=== PATIENT | female | born 1995 | race Caucasian/White ===

== ENCOUNTER 2016-12-06 13:14 | Emergency (ER) | payer MEDICAID ==
--- NOTE | 2016-12-06 14:12 | EDPHY ---
H & P Stated Complaint: x 24 hrs, has felt palpitations, pre-syncope. similar sx 1 mo ago. Time Seen by Provider: 12/06/16 13:36 HPI/ROS: Chief complaint palpitations HPI: 21-year-old female presenting with intermittent palpitations for the last month. Patient states that she is having symptoms usually in the morning and made at night. Feels her heart beating irregularly. No associated chest pain shortness of breath. Has the Implanon control placed urine half ago. Patient states she did have onset of a heavy. About a month ago which last about 2 days. She does not smoke. Does not drink alcohol. Does not use any recreational drugs. No family history of coronary disease or sudden cardiac . No recent travel. She is feeling very anxious and has been gurgling the symptoms and thought that maybe because of her recent heavy. She might have iron deficiency so she tight started taking iron supplements to treat this. Has had some increased stress anxiety. Has a history of anorexia but has not been anorexic for a couple of years. No recent weight loss or weight gain. No increased thirst or urination. No heat or cold intolerance. ROS: 10 point Review of Systems is negative except as noted in the HPI. Past medical history: Anorexia, in the past Past surgical history: None Medications: Implanon Allergies: No known drug allergies Social history: Does not smoke, drinks rare alcohol, no other recreational drug use. Physical exam: Gen: Awake, Alert, anxious appearing HEENT: Nose: no rhinorrhea Eyes: PERRLA, EOMI Mouth: Moist mucosa Neck: Supple, no JVD Chest: nontender, lungs clear to auscultation Heart: S1, S2 normal, no murmur Abd: Soft, non-tender, no guarding Back: no CVA tenderness, no midline tenderness Ext: no edema, non-tender Skin: no rash Neuro: CN II-XII intact, Sensation grossly intact, Strength 5/5 in bilateral upper and lower extremities - Personal History LMP (Females 10-55): 22-28 Days Ago Current Tetanus/Diphtheria Vaccine: Yes Current Tetanus Diphtheria and Acellular Pertussis (TDAP): Yes Tetanus Vaccine Date: 2012 - Medical/Surgical History Hx Asthma: No Hx Chronic Respiratory Disease: No Hx Diabetes: No Hx Cardiac Disease: No Hx Renal Disease: No Hx Cirrhosis: No Hx Alcoholism: No Hx HIV/AIDS: No Hx Splenectomy or Spleen Trauma: No Other PMH: tonsillectomy - Social History Smoking Status: Never smoked Constitutional: Initial Vital Signs Temperature (C) 36.7 C 12/06/16 13:17 Heart Rate 87 12/06/16 13:17 Respiratory Rate 18 12/06/16 13:17 Blood Pressure 115/71 12/06/16 13:17 O2 Sat (%) 100 12/06/16 13:17 O2 Delivery Mode Room Air Allergies/Adverse Reactions: No Known Allergies Allergy (Unverified 12/06/16 13:16) Home Medications: Medication Instructions Recorded B12/Levomefolate Calcium/B-6 12/06/16 Iron 12/06/16 Multivitamin 12/06/16 Nexplanon 12/06/16 Probiotic 12/06/16 Medical Decision Making - Diagnostics EKG Interpretation: EC, sinus rhythm with a rate of 69, normal axis, normal intervals, no acute ST or T-wave changes. Impression: Normal ECG. ED Course/Re-evaluation: 21-year-old presenting with palpitations. Normal ECG. Normal electrolytes. Normal H&H. She is not . She has a benign exam is otherwise well- appearing. I have not seen any ectopy on arteries and rhythm strip here. I have reassured her that there are no other concerning findings at this time. She has not have any weight loss or weight gain rather endocrine type symptomatology. Will discharge with follow up with [facility]. Return for any concerns. - Data Points Laboratory Results: Laboratory Results 12/06/16 14:22 12/06/16 14:22 12/06/16 12/06/16 12/06/16 14:22 14:22 14:22 WBC 4.72 10^3/uL 10^3/uL (3.80-9.50) RBC 3.97 10^6/uL L 10^6/uL (4.18-5.33) Hgb 13.7 g/dL g/dL (12.6-16.3) Hct 38.9 % % (38.0-47.0) MCV 98.0 fL fL (81.5-99.8) MCH 34.5 pg H pg (27.9-34.1) MCHC 35.2 g/dL g/dL (32.4-36.7) RDW 11.2 % L % (11.5-15.2) Plt Count 239 10^3/uL 10^3/uL (150-400) MPV 10.5 fL fL (8.7-11.7) Neut % (Auto) 43.2 % % (39.3-74.2) Lymph % (Auto) 44.7 % % (15.0-45.0) Hawkins % (Auto) 8.1 % % (4.5-13.0) Eos % (Auto) 2.1 % % (0.6-7.6) Baso % (Auto) 1.7 % % (0.3-1.7) Nucleat RBC Rel Count 0.0 % % (0.0-0.2) Absolute Neuts (auto) 2.04 10^3/uL 10^3/uL (1.70-6.50) Absolute Lymphs (auto) 2.11 10^3/uL 10^3/uL (1.00-3.00) Absolute Monos (auto) 0.38 10^3/uL 10^3/uL (0.30-0.80) Absolute Eos (auto) 0.10 10^3/uL 10^3/uL (0.03-0.40) Absolute Basos (auto) 0.08 10^3/uL 10^3/uL (0.02-0.10) Absolute Nucleated RBC 0.00 10^3/uL 10^3/uL (0-0.01) Immature Gran % 0.2 % % (0.0-1.1) Immature Gran # 0.01 10^3/uL 10^3/uL (0.00-0.10) Sodium 137 mEq/L mEq/L (134-144) Potassium 4.0 mEq/L mEq/L (3.5-5.2) Chloride 101 mEq/L mEq/L (97-110) Carbon Dioxide 25 mEq/l mEq/l (22-31) Anion Gap 11 mEq/L mEq/L (8-16) BUN 7 mg/dL mg/dL (7-23) Creatinine 0.7 mg/dL mg/dL (0.6-1.0) Estimated GFR > 60 Glucose 76 mg/dL mg/dL (70-100) Calcium 9.8 mg/dL mg/dL (8.5-10.4) Beta HCG, Qual NEGATIVE Departure - Departure Disposition: Home, Routine, Self-Care Clinical Impression: Palpitations Condition: Good Instructions: Palpitations (ED) Additional Instructions: Follow up with the [facility] in 4-5 days if you're still having palpitations. They will also assist you with evaluating your contraception. Return to the emergency depart for increasing chest pain, fainting, shortness of breath, or any other concerns. Referrals: NONE *PRIMARY CARE P,. [Primary Care Provider] - As per Instructions [facility] [Outside] - As per Instructions
[2016-12-06 14:30] LABS: % IMMATURE GRANULYOCYTES 0.2 % (0.0-1.1); ABSOLUTE IMMATURE GRANULOCYTES 0.01 10^3/uL (0.00-0.10); ADD DIFF? NO; ADD MORPH? NO; ADD SCAN? NO; ATYPICAL LYMPHOCYTE FLAG 10 (0-99); FRAGMENT RBC FLAG 20 (0-99); HEMATOCRIT 38.9 % (38.0-47.0); HEMOGLOBIN 13.7 g/dL (12.6-16.3); LEFT SHIFT FLG 0 (0-99); LIPEMIA HEMOLYSIS FLAG 90 (0-99); MEAN CELL HEMOGLOBIN 34.5 pg (27.9-34.1); MEAN CELL HEMOGLOBIN CONCENTR. 35.2 g/dL (32.4-36.7); MEAN PLATELET VOLUME 10.5 fL (8.7-11.7); PLATELET CLUMPS FLAG 20 (0-99); PLATELET COUNT 239 10^3/uL (150-400); RED BLOOD CELL COUNT 3.97 10^6/uL (4.18-5.33); RED CELL DISTRIBUTION WIDTH 11.2 % (11.5-15.2)
[2016-12-06 14:48] LABS: ANION GAP 11 mEq/L (8-16); CALCIUM 9.8 mg/dL (8.5-10.4); CARBON DIOXIDE 25 mEq/l (22-31); CHLORIDE 101 mEq/L (97-110); CREATININE 0.7 mg/dL (0.6-1.0); GLOMERULAR FILTRATION RATE > 60; GLUCOSE 76 mg/dL (70-100); SODIUM 137 mEq/L (134-144)
--- NOTE | 2016-12-06 15:05 | CPEKG ---
Heart Rate: 69 RR Interval: 870 P-R Interval: 140 QRSD Interval: 80 QT Interval: 380 QTC Interval: 407 P [place]: 74 QRS [place]: 80 T Wave [place]: 51 EKG Severity - NORMAL ECG - EKG Impression: SINUS RHYTHM Electronically Signed By: Sixto Mcdonald 06-Dec-2016 15:37:34
[2016-12-06 15:32] VITALS: BP 126/81; PULSE 77; RESP 16; TEMP 98.4; O2SAT 99
== END 2016-12-06 15:32 | disposition home or self-care (01) ==
DX: R00.2 Palpitations (principal)